=== PATIENT | female | born 1950 | race Caucasian/White ===

== ENCOUNTER 2023-08-25 16:47 | Emergency (ER) | payer OTHER, SELFPAY ==
[2023-08-25 16:51] VITALS: BP 151/78
[2023-08-25 17:13] LABS: % Basophils 0.4 % (0-2); % Eosinophils 1.3 % (0-6); % Immature Granulocytes 0.2 % (0-0.5); % Monocytes 6.3 % (1.7-9.3); % Neutrophils 50.8 % (42.2-75.2); Absolute Eosinophils 0.1 10^3/uL (0-0.7); Absolute Lymphocytes 2.3 10^3/uL (1.2-3.4); Absolute Monocytes 0.4 10^3/uL (0.1-0.6); Absolute Neutrophils 2.8 10^3/uL (1.4-6.5); Hematocrit 40.6 % (37.0-47.0); Hemoglobin 13.4 g/dL (12.0-16.0); Mean Corpuscular Hgb 29.1 pg (27.0-31.0); Mean Corpuscular Volume 88.1 fL (81.0-99.0); Mean Platelet Volume 10.1 fL (7.4-10.4); Nucleated Red Blood Cells % 0 %; Platelet Count 199 10^3/uL (130-400); Red Blood Cell Count 4.61 10^6/uL (4.20-5.40); White Blood Cell Count 5.5 10^3/uL (4.8-10.8)
[2023-08-25 17:26] LABS: ALT (SGPT) 16 U/L (0-35); AST (SGOT) 25 U/L (14-36); Albumin 4.1 g/dl (3.5-5.0); Alkaline Phosphatase 59 U/L (38-126); Blood Urea Nitrogen 23 mg/dl (7-17); Carbon Dioxide 26 mmol/L (22-30); Chloride 106 mmol/L (98-107); Glucose 103 mg/dl (70-99); Potassium 3.6 mmol/L (3.5-5.1); Sodium 137 mmol/L (135-145); Total Bilirubin 0.5 mg/dl (0.2-1.3); Total Protein 6.6 g/dl (6.3-8.2); eGFR > 60.00
[2023-08-25 17:37] LABS: Troponin I < 0.012 ng/ml
--- NOTE | 2023-08-25 18:12 | ED.GENMED ---
History of Present Illness
General
Chief Complaint: Fainting Sensation
Source: patient
Time Seen by Provider: 08/25/23 17:50
Travel History
Have you had any contact with someone who has COVID-19?: No
Do you have any symptoms of coronavirus? Fever > 100 degrees, chills, cough, shortness of breath, sore throat, loss of taste or smell, muscle aches, or headache?: No
History of Present Illness
History of Present Illness:
73-year-old female with no significant past medical history presents to the emergency department at the request of her primary care physician after around 345 this afternoon patient was sitting at home talking with a family member when she felt a
sudden paresthesia sensation to her bilateral upper extremities coinciding with a sudden onset substernal chest pain that lasted for around 1 minute that radiated towards her back but otherwise states that after the minute has been asymptomatic
since. She contacted her primary care physician to see if she can get an appointment to be evaluated but was recommended to come to the ER for further evaluation. Patient maintains that she is asymptomatic and has no other concerns at this time.
She denies any history of similar. Family history was significant for an uncle on her mother side having a stroke but otherwise no known cardiac disease. Social history was noncontributory.
Past History
Past History
ED Past Medical History: None
ED Past Surgical History: None
Social History
Tobacco: Non-smoker
Alcohol: None
Drug: None
Personal: Single
Living: with family
Review of Systems
Review of Systems
All Other Systems: ROS reviewed and negative except as documented in HPI and ROS
Phy Exam
Physical Exam
Physical Exam:
GENERAL: Alert , in no apparent distress
EYE: clear conjunctiva b/l
HEAD: NCAT
ENT: o/p clr, mmm.
CARDIAC: Regular rate and rhythm, no murmur.
LUNGS: Clear breath sounds bilaterally, no acute respiratory distress, no wheezes/rales/rhonchi
ABDOMEN: Soft, without focal tenderness, no r/g, no cvat, negative Smith sign, no tenderness at McBurney's point
NEUROLOGICAL: Alert and oriented
SKIN: Warm and dry, skin intact.
MUSCULOSKELETAL: No edema, well perfused. Easily palpable radial pulses bilateral
PSYCH: Normal and appropriate interaction.
Scores
Heart Failure Risk
Heart Failure Risk Score: Not Applicable
Heart Score for Chest Pain Patients
STEMI patient?: No
History: Slightly or Non-Suspicious
ECG: Normal
Age: >/= 65 years
Risk Factors: No Risk Factors
Troponin: </= Normal Limit
Heart Score for Chest Pain Patients: 2
Heart Score Risk: 2.5% MACE over next 6 weeks
Withdrawal Assessment of Alcohol
Withdrawal Assessment Completed?: Not applicable
Course
Orders/Labs/Results
Orders:
Orders
08/25/23 16:57
Electrocardiogram (*1) Urgent
Reason for Study: Other
Other Reason for Exam: parasthesia
08/25/23 16:58
EKG- Treatment ONCE
08/25/23 17:05
Complete Blood Count/With Diff Urgent
Comprehensive Metabolic Panel Urgent
Troponin I Urgent
08/25/23 17:59
CT Chest/abd/pelvis Angio W/wo Urgent
Comment:
Reason For Exam: sudden chest pain,radiating to back,UE paresthesia
08/25/23 18:27
PTT Urgent
Prothrombin Time Urgent
Abnormal Lab Results
08/25/23
17:05
BUN 23 H mg/dl
(7-17)
Glucose 103 H mg/dl
(70-99)
08/25/23 17:05
08/25/23 17:05
Vital Signs
Initial and Last Documented VS:
Initial Vital Signs
Temp Pulse Resp BP Pulse Ox
97.9 F 64 20 151/78 99
08/25/23 16:51 08/25/23 16:51 08/25/23 16:51 08/25/23 16:51 08/25/23 16:51
Last Documented Vital Signs
Temp Pulse Resp BP Pulse Ox
97.9 F 61 20 126/69 98
08/25/23 16:51 08/25/23 20:40 08/25/23 20:40 08/25/23 20:40 08/25/23 20:40
MDM/Problems Addressed
Differential Diagnosis Includes:
Dissection, ruptured AAA, less likely ACS, cholecystitis, electrolyte disturbance, valvular disorder, cardiac dysrhythmia
MDM/Problems Addressed:
73-year-old female presenting emergency department for evaluation of a sudden onset bilateral upper extremity paresthesia associated with substernal chest pain radiating towards her back. Symptoms are presently fully resolved and have been since
around 4:00. Patient has minimal risk factors to no risk factors for cardiac disease however given the reported symptoms I am going to order a CT angio of the chest with dissection protocol. Lab work had already been initiated from triage and is
largely unremarkable. Reassessment following.
*Radiology
Radiology exam reviewed: radiology read reviewed
*Pulse Oximetry
Patient hypoxic: no
*EKG
Interpreted by ED Provider?: Yes
Comparison EKG: no comparison EKG present
Heart Rate: 66
Rate: normal
Rhythm: sinus
Bear: normal axis
Ischemia: no ischemia
*Director Of Music Therapy Interpretation
Rate: normal
Rhythm: sinus
*Critical Care Note
Total Time (30-74mins, 75-104mins- exclusive of procedures): Not Applicable
Patient Management
Escalation/DeEscalation of care consider admission/obs:
Patient CT dissection protocol shows no acute pathology of the chest abdomen or pelvis. At this time there is no clear etiology for patient's symptoms however she remains symptom-free and otherwise wishes to be discharged home. I encouraged the
patient to contact her primary care physician tomorrow for close follow-up visit as well as discussed return precautions to all of which patient is agreeable with. Patient is otherwise stable for discharge home.
ED Attending Note
-
Portions of this chart may have been created with voice recognition software.� Occasional wrong word or��sound alike� substitutions may have occurred due to the inherent limitations of voice recognition software.
Discharge Plan
Departure
Patient Disposition: Home (Routine Discharge)
Date of Disposition: 08/25/23
Time of Disposition: 21:01
Patient with high blood pressure during this ER visit?: Yes
Discharge Problem:
Chest pain
Instructions: Chest Pain (DC)
Prescriptions:
No Action
Biotene
1 tab PO DAILY
magnesium glycinate
1 pill PO DAILY
Referrals:
Kalina Anders MD [Family Provider] -
Interventions
Interventions:
*Risk Screen - Suicide Last Done: 08/25/23 16:51
*General Assessment Last Done: 08/25/23 20:40
*Neglect/Abuse Screening Last Done: 08/25/23 20:40
ED- Fall Risk Assessment Last Done: 08/25/23 20:40
*ED COVID-19 Vaccine History Last Done: 08/25/23 20:40
ED- Cardiac Assessment Last Done: 08/25/23 20:40
ED- Neurological Assessment Last Done: 08/25/23 20:40
[2023-08-25 18:46] LABS: INR 1.03; PT 13.3 Sec (11.4-14.6)
[2023-08-25 18:47] LABS: APTT 26.2 Sec (23.4-35.0)
[2023-08-25 20:40] VITALS: BP 126/69
[2023-08-25 20:52] VITALS: BMI 28.8
[2023-08-25 22:05] VITALS: BP 133/68
== END 2023-08-25 22:46 | disposition home or self-care (01) ==
LOC: EMR 16:47
PROVIDERS: Physician Assistant Medical; EMERGENCY PHYSICIAN Student in an Organized Health Care Education/Training Program; FAMILY PHYSICIAN Internal Medicine
DX: R55 Syncope and collapse (principal)
CPT/HCPCS: 99284; 71275; 74174; 80053; 84484; 85025; 85610; 85730; 93005; Q9967

== ENCOUNTER → 2023-10-06 08:10 | Outpatient (REF) | payer OTHER, SELFPAY | LOC: WDC 08:10 | PROVIDERS: ATTENDING PHYSICIAN Nurse Practitioner | DX: Z12.31 Encounter for screening mammogram for malignant neoplasm of breast (principal) | CPT/HCPCS: 77063; 77067 ==

== ENCOUNTER 2024-05-06 13:35 | Inpatient (IN) | payer OTHER, MEDICARE, SELFPAY ==
[2024-05-06 09:00] VITALS: BP 145/82
--- NOTE | 2024-05-06 09:31 | ED.GENMED ---
History of Present Illness
General
Chief Complaint: Fall
Source: patient
Exam Limitations: none
Time Seen by Provider: 05/06/24 09:07
Nursing documentation reviewed up to this point in time: agreed with
History of Present Illness
History of Present Illness:
Patient is a 74-year female who twisted her right ankle at home and fell. She denies hitting her head she is not on blood thinners. She only complains of swelling and discomfort to right ankle with weightbearing. No other injuries.
Past History
Past History
ED Past Medical History: None
ED Past Surgical History: None
Social History
Tobacco: Non-smoker
Alcohol: None
Drug: None
Personal: Single
Living: with family
Review of Systems
Review of Systems
Allergies reviewed?: Yes
All Other Systems: ROS reviewed and negative except as documented in HPI and ROS
Constitutional: Reports no symptoms
Musculoskeletal: Reports other (r ankle pain )
Skin: Reports no symptoms
Hematologic/Lymphatic: Reports no symptoms
Psychiatric: Reports no symptoms
Phy Exam
General Physical Exam
General Presentation: no apparent distress
General age: appears stated age
General Skin: warm and dry
General Habitus: normal
General Mental: alert
General Hydration: appears well hydrated
Neurological Exam
Neurological Exam: alert and oriented x3
Musculoskeletal Exam
Musculoskeletal Exam: other (rle with strong pulses + swelling /tenderness to right lateral ankle no prox tib/fib tenderness no abrasions/lacerations )
Skin Exam
Skin Exam: normal color and warm/dry
Psychiatric Exam
Psychiatric Exam: normal mood/affect
Course
Orders/Labs/Results
Orders:
Orders
05/06/24 09:02
Ankle, Right 3 view CR [CR Ankle - Right Min 3 Views *] Urgent
Comment: + swelling
Reason For Exam: tripped over map twisted right ankle
05/06/24 10:11
Splints/Slings/Crut- Treatment ONCE
Location: Right
Type of Splint: Short Leg
Comment: below right knee
05/06/24 10:12
Electrocardiogram (*1) Stat
Reason for Study: Abdominal Pain
EKG- Treatment ONCE
IV Insert/Care/Rem.- Treatment PRN
05/06/24 10:34
Basic Metabolic Panel Urgent
Complete Blood Count/With Diff Urgent
Abnormal Lab Results
05/06/24
10:34
MPV 11.2 H fL
(7.4-10.4)
BUN 22 H mg/dl
(7-17)
05/06/24 10:34
05/06/24 10:34
Vital Signs
Initial and Last Documented VS:
Initial Vital Signs
Temp Pulse Resp BP Pulse Ox
98.0 F 76 16 145/82 98
05/06/24 09:00 05/06/24 09:00 05/06/24 09:00 05/06/24 09:00 05/06/24 09:00
Last Documented Vital Signs
Temp Pulse Resp BP Pulse Ox
98.0 F 76 16 145/82 98
05/06/24 09:00 05/06/24 09:00 05/06/24 09:00 05/06/24 09:00 05/06/24 09:00
Procedures
Splint Check
Splint checked by provider?: Yes
Circulation/Movement/Sensation post splint application: brisk cap refill and full sensation
MDM/Problems Addressed
Differential Diagnosis Includes:
Not limited to fracture, dislocation, sprain
MDM/Problems Addressed:
pt with right distal fibular fracture + displaced + strong pulses neurovascular intact no head injury.
Case reviewed with orthopedics on-call who was able to visualize images on [facility] text. This will require surgery. Discussed with patient. After discussion with orthopedics and patient patient will be admitted for surgery basic labs ordered.
Patient placed in a posterior splint.
*Critical Care Note
Total Time (30-74mins, 75-104mins- exclusive of procedures): Not Applicable
Patient Management
Discussion with other providers: [employer] (DR Schwab (ortho ) )
ED Attending Note
-
Portions of this chart may have been created with voice recognition software.� Occasional wrong word or��sound alike� substitutions may have occurred due to the inherent limitations of voice recognition software.
Discharge Plan
Departure
Patient Disposition: Admit
Date of Disposition: 05/06/24
Time of Disposition: 11:56
Admit to: Med/Surg
Admit to doctor: hospitalist
Presentation/result/management discussed w/ accepting MD/DO: Hospitalist
Patient with high blood pressure during this ER visit?: Yes
Condition: Fair
Covid-19: Not Applicable
Discharge Problem:
Fibula fracture
Prescriptions:
No Action
No Current Medications
0
Referrals:
Chioma Allan CRNP [Family Provider] -
Interventions
Interventions:
*Risk Screen - Suicide Last Done: 05/06/24 09:00
*General Assessment Last Done: 05/06/24 09:23
*Neglect/Abuse Screening Last Done: 05/06/24 09:00
*ED COVID-19 Vaccine History Last Done: 05/06/24 09:23
ED-Musculoskeletal Assessment Last Done: 05/06/24 09:23
ED- Neurological Assessment Last Done: 05/06/24 09:23
ED-Skin Assessment Last Done: 05/06/24 09:23
Discharge Date and Time
Print Language: SUDANESE
[2024-05-06 10:47] VITALS: BMI 27.8
[2024-05-06 10:47] LABS: % Basophils 0.4 % (0-2); % Eosinophils 0.7 % (0-6); % Immature Granulocytes 0.2 % (0-0.5); % Monocytes 4.9 % (1.7-9.3); % Neutrophils 70.8 % (42.2-75.2); Absolute Lymphocytes 1.3 10^3/uL (1.2-3.4); Absolute Monocytes 0.3 10^3/uL (0.1-0.6); Absolute Neutrophils 3.9 10^3/uL (1.4-6.5); Hematocrit 39.9 % (37.0-47.0); Hemoglobin 13.4 g/dL (12.0-16.0); Mean Corp Hgb Conc. 33.6 g/dL (33.0-37.0); Mean Corpuscular Hgb 29.3 pg (27.0-31.0); Mean Corpuscular Volume 87.1 fL (81.0-99.0); Mean Platelet Volume 11.2 fL (7.4-10.4); Nucleated Red Blood Cells % 0 %; Platelet Count 259 10^3/uL (130-400); Red Blood Cell Count 4.58 10^6/uL (4.20-5.40); Red Cell Dist. Width 14.1 % (11.5-14.5); White Blood Cell Count 5.5 10^3/uL (4.8-10.8)
[2024-05-06 11:09] LABS: Blood Urea Nitrogen 22 mg/dl (7-17); Calcium 9.7 mg/dl (8.4-10.2); Carbon Dioxide 25 mmol/L (22-30); Chloride 107 mmol/L (98-107); Estimated Creatinine Clearance 60 ml/min; Glucose 73 mg/dl (70-99); Sodium 141 mmol/L (135-145); eGFR > 60.00
--- NOTE | 2024-05-06 13:08 | HPS.HSE ---
Family Physician
-
Family Physician: ELIZABETH Barrett
Chief Complaint
-
Fall, ankle pain
History of Present Illness
74-year-old female with GERD, hyperlipidemia, allergic rhinitis that presented to the ED today after a fall at home. States that she fell when walking into her house on her floor mat, and fell with her right ankle onto her door jam. Denied any
head strike, loss of consciousness. She is not on any blood thinners. Complained of swelling and discomfort to the right ankle with weightbearing following the incident. Denies other known injuries. Not currently on any standing medications. No
previous surgical history. AFVSS on arrival. Labs unremarkable. X-ray of the ankle showed acute oblique fracture of the right distal fibula located at the level of the distal tibiofibular syndesmosis with 5.8 mm lateral displacement of the distal
fracture fragment. X-ray also showed likely tear of the deltoid ligament, small calcaneal enthesophytes. Evaluated by Dr. Schwab from orthopedics who recommended surgical fixation on this hospital stay.
Medical History
Past Medical History
Past Medical History: Reports GERD, HTN and Hypercholesterolemia
Past Surgical History: Reports None
Social History
Tobacco: Non-smoker
Alcohol: None
Drug: None
Personal: Single
Living: With Family
Family History
Family History: Not pertinent
Allergies / Home Medications
Allergies reflects when Allergies were last updated in [facility].
Home Medications with original date entered in [facility]
Allergy/Medication List:
Allergies
Allergy/AdvReac Type Severity Reaction Status Date / Time
No Known Allergies Allergy Verified 05/06/24 09:02
Home Medications
No Meds [No Current Medications] 05/06/24
Review of Systems
-
History Source: Patient
A 12 point ROS was completed and negative except as noted: Yes
Constitutional: Reports No Symptoms
EENT: Reports No Symptoms
Respiratory: Reports No Symptoms
Cardiac: Reports No Symptoms
Abdomen/GI: Reports No Symptoms
: Reports No Symptoms
Musculoskeletal: Reports See HPI, Joint Pain and Joint Swelling
Skin: Reports No Symptoms
Neurological: Reports No Symptoms
Endocrine: Reports No Symptoms
Hematologic/Lymphatic: Reports No Symptoms
Psych: Reports No Symptoms
Physical Exam
Vital Signs
Vital Signs
Temp Pulse Resp BP Pulse Ox
98.0 F 76 16 145/82 98
05/06/24 09:00 05/06/24 09:00 05/06/24 09:00 05/06/24 09:00 05/06/24 09:00
Physical Exam
General: Well Nourished, No Apparent Distress and Comfortable
HEENT: NormoCephalic, Anicteric and Moist mucous membranes
Respiratory: Clear and Non Labored Respirations; No Wheezes, Rales or Rhonchi
Cardiac: S1/S2 and Regular Rhythm; No Murmur, Rub or Gallop
GI: Soft, Non Tender, Non Distended and Normal Bowel Sounds
Musculoskeletal: No Clubbing, No Cyanosis and Other ( no gross deformity noted; right ankle bandage)
Skin: Warm and Dry; No Rash
Neuro: AO x 3 and Nonfocal/grossly intact
Psych: Calm
Laboratory Results
-
05/06/24 10:34
05/06/24 10:34
Laboratory Results
Total Bilirubin Cancelled 05/06/24 10:34
AST Cancelled 05/06/24 10:34
ALT Cancelled 05/06/24 10:34
Alkaline Phosphatase Cancelled 05/06/24 10:34
Data Reviewed
-
Diagnostic Radiology: Report Reviewed by me, Discussed with Physician and Discussed with Patient
Lab Data: Labs Reviewed by me and Discussed with Patient
Impression/Plan
-
#Displaced acute oblique fracture of the right fibula
-Secondary to mechanical fall with twisting motion at the level of the ankle
-X-ray here showed acute fracture, orthopedics recommending inpatient procedure
-Neurovascularly intact distal to the injury, no compromise to dermal layers
-Will keep patient nonweightbearing pending orthopedics evaluation
-N.p.o. after midnight for potential surgical fixation tomorrow
-Analgesia: Tylenol/oxycodone 5/oxycodone 10
#GERD
-Not on any home medications
-No history of BE or erosive disease
-Will order famotidine as needed
#Dyslipidemia
-Per history, no medications, no ASCVD
#Hypertension
-Not on any home medications, no history of systemic disease
-Will monitor blood pressure here and consider as needed medications for elevation
DVT prophylaxis: Heparin subcutaneous
Diet: Regular, NPO @ MN
CODE STATUS: Full code
Disposition: Admit to [facility]
--- NOTE | 2024-05-06 14:50 | PTCARENOTE ---
Patient arrived via stretcher from ED with (R) below knee splint and leigh ann wrap; VSS; (R) ankle pain level 3; admission history obtained at bedside.
[2024-05-06 15:08] VITALS: BP 159/83
[2024-05-06 15:09] VITALS: BMI 28.3
[2024-05-06] MEDS: TYLENOL 650 MG PO ×2 (15:36→22:54)
[2024-05-06] MEDS: HEPARIN 5000 UNITS SC (15:37)
--- NOTE | 2024-05-06 17:13 | CON.ORTHO ---
Consultation - Orthopedics
History
HPI: 74-year-old healthy female presented emergency department today status post mechanical fall with complaints of right ankle pain. She was subsequently diagnosed with an unstable bimalleolar equivalent ankle fracture and was admitted to the
hospitalist service. Orthopedics was consulted for further evaluation and treatment. Patient reports that she tripped on a rug at home and subsequently fell and twisted her ankle. She felt immediate pain and inability to bear weight. She reports
that she lives at home with her daughter. She reports that she still works full-time for [employer].
Allergies / Home Medications
Past medical history: GERD, hypertension, hypercholesterolemia
Past surgical history: None reported
Social history: Non-smoker, lives with daughter at home
Family history: Not pertinent
Allergy/AdvReac Type Severity Reaction Status Date / Time
No Known Allergies Allergy Verified 05/06/24 09:02
�Medication �Instructions �Recorded
No Meds [No Current Medications] 05/06/24
Vital Signs / Lab Results
Temp Pulse Resp BP Pulse Ox
97.8 F 67 16 159/83 98
05/06/24 15:08 05/06/24 15:08 05/06/24 15:08 05/06/24 15:08 05/06/24 15:08
05/06/24 10:34
05/06/24 10:34
10 point review systems reviewed and negative unless otherwise stated
General: Pleasant, no acute distress
Musculoskeletal right lower extremity
Splint in place
Splint was windowed and skin overlying lateral ankle was visualized, able to wrinkle skin
Positive EHL, FHL, sensation intact to light touch in exposed skin distally
No palpable ipsilateral knee effusion
Post cap refill distally
No other areas of bony tenderness palpation or crepitation of long bones or joints or tertiary examination
Diagnostic studies
X-rays left ankle taken today independently viewed by myself show oblique lateral malleolus fracture level of syndesmosis with significant shortening. There is evidence of medial joint space widening
Assessment / Plan
74-year-old female healthy lateral malleolus/bimalleolar equivalent ankle fracture right. I do long detailed discussion the patient regarding diagnosis and treatment options. We discussed both surgical and nonsurgical options. After discussion we
mutually agreed to proceed with surgical intervention in the form of open reduction internal fixation. We discussed risks benefits and alternatives of surgery. We discussed the usual expected perioperative postoperative course. After discussion
verbal consent was obtained. Will plan to obtain written informed consent prior to OR tomorrow
Nonweightbearing right lower extremity
DVT prophylaxis: Hold in preparation for OR
Pain control
Medical management per primary team
Maintain elevation and ice to right lower extremity to minimize swelling in preparation for OR
Plan: 2 OR tomorrow for open reduction internal fixation right ankle fracture
[2024-05-06 23:12] VITALS: BP 158/78
[2024-05-07] VITALS (10 sets, daily range): BP systolic 119–162; BP diastolic 59–87; PULSE 86–92; O2SAT 98
[2024-05-07] MEDS: HEPARIN 5000 UNITS SC (00:03)
[2024-05-07 05:28] LABS: % Basophils 0.3 % (0-2); % Eosinophils 1.5 % (0-6); % Immature Granulocytes 0.2 % (0-0.5); % Lymphocytes 31.3 % (20.5-51.1); % Monocytes 6.9 % (1.7-9.3); % Neutrophils 59.8 % (42.2-75.2); Absolute Eosinophils 0.1 10^3/uL (0-0.7); Absolute Lymphocytes 1.9 10^3/uL (1.2-3.4); Absolute Monocytes 0.4 10^3/uL (0.1-0.6); Absolute Neutrophils 3.6 10^3/uL (1.4-6.5); Hematocrit 38.4 % (37.0-47.0); Hemoglobin 12.9 g/dL (12.0-16.0); Mean Corp Hgb Conc. 33.6 g/dL (33.0-37.0); Mean Corpuscular Hgb 29.2 pg (27.0-31.0); Mean Corpuscular Volume 86.9 fL (81.0-99.0); Mean Platelet Volume 10.4 fL (7.4-10.4); Nucleated Red Blood Cells % 0 %; Platelet Count 189 10^3/uL (130-400); Red Blood Cell Count 4.42 10^6/uL (4.20-5.40); Red Cell Dist. Width 14.1 % (11.5-14.5)
[2024-05-07 05:50] LABS: Blood Urea Nitrogen 18 mg/dl (7-17); Calcium 9.4 mg/dl (8.4-10.2); Carbon Dioxide 23 mmol/L (22-30); Chloride 106 mmol/L (98-107); Estimated Creatinine Clearance 61 ml/min; Glucose 111 mg/dl (70-99); Sodium 140 mmol/L (135-145); eGFR > 60.00
[2024-05-07] MEDS: HEPARIN SC (07:45)
--- NOTE | 2024-05-07 08:00 | PTCARENOTE ---
Telephone report given to LOOP MACHINE OPERATORPRABHJOT Quevedo; 2nd CHG wipe completed; patient delivered in bed with chart to OR waiting area bed 1.
--- NOTE | 2024-05-07 08:00 | OR.RPT ---
Operative Report
Operative Report
Anesthesia Type:
General
Operative Indications:
Unstable right bimalleolar equivalent ankle fracture
Operative Findings :
Mostly oblique lateral malleolus fracture
Complications:
None
Implants:
[place]ake anatomic lateral malleolus plate
Procedure and Technique:
Open reduction internal fixation right lateral malleolus fracture
INDICATIONS FOR PROCEDURE:
Patient is an active 74-year-old female sustained mechanical fall at home with immediate complaints of right ankle pain and inability to bear weight. She presented to the emergency department where an unstable bimalleolar equivalent ankle fracture
was identified. A long discussion the patient regarding diagnosis and treatment options. Discussed both surgical nonsurgical options. After discussion we mutually elected proceed with surgical intervention in the form of open reduction internal
fixation lateral malleolus fracture with intraoperative stress testing. We discussed risks benefits and alternatives to procedure. We discussed the usual expected perioperative postoperative course. After discussion written informed consent was
obtained.
OPERATIVE PROCEDURE:
Patient was seen identified the preoperative holding area. Operative extremity was marked. All questions were addressed and answered. She was taken the operating room which was placed supine on operating room table. General anesthesia was
administered. Operative extremities prepped and draped in normal sterile fashion. Nonsterile tourniquet was applied. Timeout was performed again identifying the correct operative extremity. Preoperative antibiotics were addressed. Direct
lateral approach to the ankle was taken. Sharp dissection was carried through skin subcutaneous tissues. Deep dissection was performed in a blunt manner. All neurovascular structures were protected. Oblique fracture was identified. Attempt was
made to perform a lag by technique lag fixation of the fracture from an A to P direction. There was not appropriate fixation and likely fracture is much more oblique in nature than spiral. I decision was made to place a plate and then a lag
through the plate in a lateral to medial direction. A lateral anatomic locking plate was then placed with bicortical fixation proximally and unicortical locking fixation distally. A lag screw was then placed through the plate and a lateral to
medial direction through the oblique fracture site. This did provide additional fixation. The ankle was then stressed with external rotation stress views. There was no significant medial joint space widening. There is appropriate tib-fib
overlap. The fibula was out to length. Satisfied with extent surgery, tourniquet was deflated and hemostasis was achieved with electrocautery. Wound was copiously irrigated with normal saline solution. Wound was closed in layered fashion
utilizing 0 Vicryl for deep fascial layer, 2-0 Vicryl for subcutaneous layer and nylon sutures for skin. Sterile dressing was applied consisting of Xeroform, 4 x 4 gauze, ABD Webril. An AO splint was placed by myself with the ankle in a neutral
position. Anesthesia was versed and patient was taken to PACU in stable condition. Postoperative plans include nonweightbearing to the operative extremity. Recommend aspirin for DVT prophylaxis. Follow-up outpatient with myself in 2 weeks.
Disposition:
PACU stable condition
[2024-05-07] MEDS: DILAUDID 0.25 MG IV (10:28)
--- NOTE | 2024-05-07 11:03 | PTCARENOTE ---
Telephone report received from GREASE [employer] TALLOW PUMPER Pietro, patient arrived in bed, VSS, Splint/leigh ann wrap intact, pain free; patient's daughter and son in room.
[2024-05-07] MEDS: NSS 1000 IV ×2 (12:02→22:12)
--- NOTE | 2024-05-07 12:02 | W.PN.HOSP.TC ---
Today's Communication/Plan
-
OR today
Plan diet after OR
Begin PT at orthopedics discretion
Assessment / Plan
Assessment / Plan
#Displaced acute oblique fracture of the right fibula
-Secondary to mechanical fall with twisting motion at the level of the ankle
-X-ray here showed acute fracture, orthopedics recommending inpatient procedure
-Will keep patient nonweightbearing pending orthopedics evaluation
-Analgesia: Tylenol/oxycodone 5/oxycodone 10
-OR today, will follow-up orthopedics ecs after surgery
-Begin working with PT at Ortho's discretion
#GERD
-Not on any home medications
-No history of BE or erosive disease
-Will order famotidine as needed
#Dyslipidemia
-Per history, no medications, no ASCVD
#Hypertension
-Not on any home medications, no history of systemic disease
-Will monitor blood pressure here and consider as needed medications for elevation
DVT prophylaxis: Heparin subcutaneous
Diet: Plan for diet after OR
CODE STATUS: Full code
Anticipated Discharge: 24 - 48 hours
Subjective/Interval History
-
Date of Service: May 07, 2024
Seen and examined in the PACU prior to surgery. No acute events overnight. AFVSS as of this morning.
She denies any acute complaints and states she feels well, ready for the procedure.
Objective Data
-
Labs:
Laboratory Results
05/07/24
04:31
WBC 6.0
Hgb 12.9
Hct 38.4
Plt Count 189 D
Sodium 140
Potassium 4.0
Chloride 106
Carbon Dioxide 23
BUN 18 H
Creatinine 0.8
Glucose 111 H
Calcium 9.4
Vital Signs:
Vital Signs
Temp Pulse Resp BP Pulse Ox
97.7 F 64 16 138/71 94
05/07/24 11:15 05/07/24 11:15 05/07/24 11:15 05/07/24 11:15 05/07/24 11:15
I&O
05/06/24 05/07/24 05/08/24
06:59 06:59 06:59
Intake Total 480 / 480
Balance 480 / 480
Review of Systems
-
History Source: Patient
All other systems: Reviewed and negative
Physical Exam
-
General: Well Nourished, No Apparent Distress and Comfortable
HEENT: Normocephalic, Atraumatic and Moist Mucous Membranes
Respiratory: Clear to Auscultation and Non Labored Respirations
Cardiac: Regular Rhythm and S1/S2; Negative Murmur, Rub or Gallop
GI: Soft, Nontender and Nondistended
Musculoskeletal: No Clubbing, No Cyanosis, No Edema and Other
Skin: Warm, Dry and Normal Turgor; Negative Rash
Neuro: AO x 3, Nonfocal/Grossly Intact and Central Nerve's Intact
Psych: Calm
Data Reviewed
-
Labs: Labs Reviewed by me and Discussed with Patient
--- NOTE | 2024-05-07 15:44 | CM ---
Addendum entered by Brittany Nguyen 05/08/24 16:34:
referral to [facility] and accepted.
Addendum entered by Brittany Nguyen 05/07/24 15:49:
CM called to acute care to inquire re transportation in am. they are able to transport. patient updated that she may have copay or deductable and to call insurance #. CM will assist with discharge planning tomorrow.
Original Note:
Patient seen at bedside with sister present. Patient lives with family in a 2 story home 5 steps to enter and 14 to second floor. Patient non weight bearing for 2 wks. Patient daughter went to [place] to review options for purchasing wheelchair and
family is intrested in possible ambulance transportation to home due to Non weight bearing and steps. Patient is considering need for VN and her PCP is Dr. Guzman and she uses the [facility] in [place]. Patient has [facility] part A. Patient plan is to go
home with family supports. CM will continue to follow for discharge planning needs.
Plan; home with VN vs home with no needs.
[2024-05-07] MEDS: ANCEF 5 IV (16:39)
[2024-05-07] MEDS: TYLENOL 650 MG PO (22:19)
[2024-05-08] MEDS: ANCEF 5 IV (00:46)
[2024-05-08 03:30] VITALS: BP 142/73
[2024-05-08 06:44] LABS: % Basophils 0.1 % (0-2); % Eosinophils 0.2 % (0-6); % Immature Granulocytes 0.2 % (0-0.5); % Lymphocytes 22.3 % (20.5-51.1); % Monocytes 5.8 % (1.7-9.3); % Neutrophils 71.4 % (42.2-75.2); Absolute Lymphocytes 2.1 10^3/uL (1.2-3.4); Absolute Monocytes 0.6 10^3/uL (0.1-0.6); Absolute Neutrophils 6.8 10^3/uL (1.4-6.5); Hematocrit 35.6 % (37.0-47.0); Hemoglobin 11.6 g/dL (12.0-16.0); Mean Corp Hgb Conc. 32.6 g/dL (33.0-37.0); Mean Corpuscular Hgb 27.9 pg (27.0-31.0); Mean Corpuscular Volume 85.6 fL (81.0-99.0); Mean Platelet Volume 10.8 fL (7.4-10.4); Nucleated Red Blood Cells % 0 %; Platelet Count 196 10^3/uL (130-400); Red Blood Cell Count 4.16 10^6/uL (4.20-5.40); Red Cell Dist. Width 14.3 % (11.5-14.5); White Blood Cell Count 9.5 10^3/uL (4.8-10.8)
[2024-05-08 07:01] VITALS: BP 140/72
[2024-05-08 07:05] LABS: Blood Urea Nitrogen 18 mg/dl (7-17); Calcium 8.7 mg/dl (8.4-10.2); Carbon Dioxide 23 mmol/L (22-30); Chloride 108 mmol/L (98-107); Estimated Creatinine Clearance 70 ml/min; Glucose 83 mg/dl (70-99); Potassium 4.3 mmol/L (3.5-5.1); Sodium 142 mmol/L (135-145); eGFR > 60.00
--- NOTE | 2024-05-08 09:48 | W.PN.ORTHO ---
Today's Communication / Plan
-
74-year-old female postop day 1 status post open reduction term fixation right lateral malleolus fracture doing well.
Nonweightbearing right lower extremity in splint
PT OT
Pain control
DVT prophylaxis: Recommend 81 mg aspirin twice daily for 30 days
Would like to have patient follow-up outpatient with myself in 2 to 3 weeks for repeat evaluation with planned removal of sutures.
Please reach out any questions or concerns. No further orthopedic intervention planned during this hospitalization.
Assessment
.
Dressing:
Clean, dry and intact.
Subjective
.
.:
Patient resting comfortably in chair this morning. Daughter at bedside. She reports that she was able to ambulate quite well yesterday with a walker.
Vital Signs and Labs
.
Vital Signs and Labs:
Lab Results
05/08/24 04:24
05/08/24 04:24
Temp Pulse Resp BP Pulse Ox
97.8 F 74 16 140/72 98
05/08/24 07:01 05/08/24 07:01 05/08/24 07:01 05/08/24 07:01 05/08/24 08:00
Physical Exam
-
Musculoskeletal right lower extremity
Splint in place, exposed toes warm sensate mobile
[2024-05-08] MEDS: NSS IV (10:36)
--- NOTE | 2024-05-08 10:54 | W.PN.HOSP.TC ---
Today's Communication/Plan
-
Aspirin for DVT prophylaxis
NWB to RLE in splint
Discharge
Assessment / Plan
Assessment / Plan
#Displaced acute oblique fracture of the right fibula
-Status post OR for right lateral malleolus plate
-Continue with aspirin 81 mg twice daily for 30 days as DVT prophylaxis
-Continue NWB right lower extremity in splint
-Continue with Tylenol as needed for analgesia
-Follow-up outpatient with orthopedics outpatient
#GERD
-Not on any home medications
-No history of BE or erosive disease
-Will order famotidine as needed
#Dyslipidemia
-Per history, no medications, no ASCVD
#Hypertension
-Not on any home medications, no history of systemic disease
-Will monitor blood pressure here and consider as needed medications for elevation
DVT prophylaxis: Heparin subcutaneous
Diet: Plan for diet after OR
CODE STATUS: Full code
Anticipated Discharge: Today
Subjective/Interval History
-
Date of Service: May 08, 2024
Seen and examined at the bedside. No acute events reported overnight. AFVSS this morning.
POD #1 from right ankle lateral malleolus plate
Denies any acute complaints including pain.
Objective Data
-
Labs:
Laboratory Results
05/08/24
04:24
WBC 9.5
Hgb 11.6 L
Hct 35.6 L
Plt Count 196
Sodium 142
Potassium 4.3
Chloride 108 H
Carbon Dioxide 23
BUN 18 H
Creatinine 0.7
Glucose 83
Calcium 8.7
Vital Signs:
Vital Signs
Temp Pulse Resp BP Pulse Ox
97.8 F 74 16 140/72 98
05/08/24 07:01 05/08/24 07:01 05/08/24 07:01 05/08/24 07:01 05/08/24 08:00
I&O
05/07/24 05/08/24 05/09/24
06:59 06:59 06:59
Intake Total 480 / 480 2626 / 2626 340 / 340
Balance 480 / 480 2626 / 2626 340 / 340
Review of Systems
-
History Source: Patient
All other systems: Reviewed and negative
Physical Exam
-
General: Well Nourished, No Apparent Distress and Comfortable
HEENT: Normocephalic, Atraumatic and Moist Mucous Membranes
Respiratory: Clear to Auscultation and Non Labored Respirations
Cardiac: Regular Rhythm and S1/S2
GI: Soft, Nontender, Nondistended and Normal Bowel Sounds
Musculoskeletal: No Clubbing, No Cyanosis, No Edema and Other (RLE bandaged at ankle)
Skin: Warm and Dry; Negative Rash
Neuro: AO x 3, Nonfocal/Grossly Intact and Central Nerve's Intact
Psych: Calm
[2024-05-08 11:01] VITALS: BP 143/72; PULSE 75; O2SAT 97
--- NOTE | 2024-05-08 11:54 | W.DCSUMMARY ---
Discharge Summary
Discharge Data
Date of Admission: 05/06/24
Date of Discharge: 05/08/24
-
Pending Results: No
Hospital Course
74-year-old female with no chronic medical issues currently on no standing medications that presented after a mechanical fall at home. Walked into her house and slipped on the rug, fell with her right ankle into the door jam. Significant pain
following the incident. Came to the ED, x-ray showing right fibular fracture. Was evaluated by orthopedics and right lateral malleoli are plate was performed on 05/07/2024. Patient treated with oral Tylenol as needed for pain. Started on aspirin
81 mg twice daily for DVT prophylaxis. Will continue DVT prophylaxis for 30 days. Will follow-up with orthopedics in office after discharge. Recommendations for nonweightbearing to right lower extremity with splint. Case management set up
visiting nurse and home PT prior to discharge
Discharge Plan
-
Patient Disposition: Home (Routine Discharge)
Discharge Diagnosis/Procedures: Right fibular fracture
Status post right lateral malleolus plate
Condition: Good
Diet: No restrictions
Activity: Other activity
Additional Activity: Nonweightbearing to right lower extremity in splint
Driving Restrictions: No driving for 24 hours
Bathing Restrictions: None
Blood Work: None
Others Tests: None
Other Services: PT
Activity Restrictions/Additional Instructions:
After discharge she will need to follow-up with orthopedist in the office, call to schedule an appointment.
You should follow-up with your family doctor within 7 days of discharge for routine posthospital visit
Referrals:
Ike Schwab MD [Active] - in two to three weeks
Chioma Allan CRNP [Family Provider] -
Additional Discharge Medication Instructions: Use OTC Tylenol as needed for pain
Take aspirin 81 mg twice daily for 30 days as prophylaxis to prevent blood clots in the leg following surgery
Prescriptions:
New
aspirin 81 mg Tablet,Chewable
81 mg PO BID 30 Days Qty: 60 0RF
Discharge Orders:
Discharge Patient (As Directed); Ordered 05/08/24
Ordered By: Chidi Alexander
Discharge Date and Time
Print Language: CYMRO
[2024-05-08 15:00] VITALS: BP 129/65
[2024-05-08] MEDS: LOW STRENGTH ASPIRIN 81 MG PO (16:30)
== END 2024-05-08 18:00 | disposition home or self-care (01) | DRG 494 ==
LOC: 2 SOUTH 13:35
PROVIDERS: Nurse Practitioner; ADMITTING PHYSICIAN Internal Medicine; EMERGENCY PHYSICIAN Emergency Medicine; FAMILY PHYSICIAN Nurse Practitioner; OTHER PHYSICIAN Orthopaedic Surgery
PROC: 0QSJ04Z Reposition Right Fibula with Internal Fixation Device, Open Approach (ICD-10-PCS; 2024-05-07)
DX: S82.61XA Displaced fracture of lateral malleolus of right fibula, initial encounter for closed fracture (principal); E78.00 Pure hypercholesterolemia, unspecified; I10 Essential (primary) hypertension; K21.9 Gastro-esophageal reflux disease without esophagitis; W01.0XXA Fall on same level from slipping, tripping and stumbling without subsequent striking against object, initial encounter; Y92.009 Unspecified place in unspecified non-institutional (private) residence as the place of occurrence of the external cause
CPT/HCPCS: 29515; 73610; 76000; 80048; 85025; 93005; 97116; 97162; 97166; 97530; 99285; C1713

== ENCOUNTER → 2024-10-14 11:23 | Outpatient (REF) | payer OTHER, SELFPAY | LOC: RAD 11:23 | PROVIDERS: ATTENDING PHYSICIAN Nurse Practitioner | DX: Z12.31 Encounter for screening mammogram for malignant neoplasm of breast (principal); M79.601 Pain in right arm | CPT/HCPCS: 73030; 73060 ==

== ENCOUNTER → 2024-10-19 09:23 | Outpatient (REF) | payer OTHER, SELFPAY | LOC: WDC 09:23 | PROVIDERS: ATTENDING PHYSICIAN Nurse Practitioner | DX: R92.8 Other abnormal and inconclusive findings on diagnostic imaging of breast (principal) | CPT/HCPCS: 76642 ==

== ENCOUNTER 2025-01-31 13:52 | Emergency (ER) | payer OTHER, SELFPAY ==
[2025-01-31 13:57] VITALS: BP 102/54
[2025-01-31 14:12] VITALS: BP 138/63
[2025-01-31 14:13] LABS: Hematocrit 39.6 % (37.0-47.0); Hemoglobin 13.2 g/dL (12.0-16.0); Mean Corp Hgb Conc. 33.3 g/dL (33.0-37.0); Mean Corpuscular Volume 85.9 fL (81.0-99.0); Nucleated Red Blood Cells % 0 %; Platelet Count 230 10^3/uL (130-400); Red Cell Dist. Width 14.0 % (11.5-14.5)
[2025-01-31 14:32] VITALS: BMI 31.1
[2025-01-31 14:48] LABS: Troponin I < 0.012 ng/ml
[2025-01-31 15:00] VITALS: BP 152/70
[2025-01-31 15:14] LABS: ALT (SGPT) 27 U/L (0-35); AST (SGOT) 50 U/L (14-36); Albumin 4.4 g/dl (3.5-5.0); Alkaline Phosphatase 79 U/L (38-126); Blood Urea Nitrogen 25 mg/dl (7-17); Calcium 9.5 mg/dl (8.4-10.2); Carbon Dioxide 19 mmol/L (22-30); Chloride 109 mmol/L (98-107); Estimated Creatinine Clearance 52 ml/min; Glucose 128 mg/dl (70-99); Potassium 3.7 mmol/L (3.5-5.1); Sodium 138 mmol/L (135-145); Total Protein 6.8 g/dl (6.3-8.2); eGFR > 60.00
--- NOTE | 2025-01-31 15:33 | ED.GENMED ---
History of Present Illness
<Tayler Rdz PA-C - Last Filed: 02/01/25 11:56>
General
Chief Complaint: Chest Pain
Source: patient
Exam Limitations: none
Time Seen by Provider: 01/31/25 15:33
Nursing documentation reviewed up to this point in time: agreed with
History of Present Illness
History of Present Illness:
Patient is a 74-year-old healthy female who presents to the emergency department for evaluation of acute onset chest pressure. Patient states she was registering for her DEXA scan outpatient at the hospital when she had acute onset pressure in her
mid chest which radiated into her upper back. She reports feeling mildly short of breath and diaphoretic at the time. Persisted for about 30 minutes but resolved by the time she was in the emergency department. She think symptoms started around 2
PM.
Patient denies any radiation of pain to her shoulders or jaw. No numbness/tingling in extremities or headache.
Patient denies any recent travel or recent surgeries. No personal or family history of blood clots or clotting disorders.
Patient did see 1 time a few years ago where she had a normal workup.
Past History
<Tayler Rdz PA-C - Last Filed: 02/01/25 11:56>
Past History
ED Past Medical History: None
ED Past Surgical History: None
Social History
Tobacco: Non-smoker
Alcohol: None
Drug: None
Personal: Single
Living: with family
Review of Systems
<Tayler Rdz PA-C - Last Filed: 02/01/25 11:56>
Review of Systems
Allergies reviewed?: Yes
All Other Systems: ROS reviewed and negative except as documented in HPI and ROS
Phy Exam
<Tayler Rdz PA-C - Last Filed: 02/01/25 11:56>
Physical Exam
Physical Exam:
Vitals: Patient's vital signs are stable. Afebrile
General: Patient is well appearing, no acute distress. Nontoxic appearing
Skin: Warm and dry, no rashes or lesions
Head: Normocephalic, atraumatic
Eyes: Sclera nonicteric.
Throat: Protecting airway
Neck: Normal ROM, no cervical spine tenderness, no meningismus
Cardiac: Regular rate and rhythm, no murmurs. No reproducible chest wall tenderness. Plus palpable radial pulses bilaterally
Pulm: Normal respiratory effort, no wheezes, rales, rhonchi heard on exam
Abdomen: No abdominal tenderness.
Extremities: No evidence of cyanosis or edema
Neuro: AAOx3. Grossly intact.
Psychiatric: Normal affect.
Scores
<Tayler Rdz PA-C - Last Filed: 02/01/25 11:56>
Heart Score for Chest Pain Patients
STEMI patient?: No
History: Slightly or Non-Suspicious
ECG: Normal
Age: >/= 65 years
Risk Factors: 1 or 2 Risk Factors
Troponin: </= Normal Limit
Heart Score for Chest Pain Patients: 3
Heart Score Risk: 2.5% MACE over next 6 weeks
Course
<Tayler Rdz PA-C - Last Filed: 02/01/25 11:56>
Orders/Labs/Results
Orders:
Orders
01/31/25 13:53
EKG [Electrocardiogram (*1)] Urgent
Reason for Study: Shortness of Breath
EKG- Treatment ONCE
01/31/25 14:07
CMP [Comprehensive Metabolic Panel] Urgent
Complete Blood Count/With Diff Urgent
Troponin I Urgent
01/31/25 16:04
D-Dimer Urgent
01/31/25 16:23
CT Chest/abd/pelvis Angio W/wo Urgent
Comment:
Reason For Exam: Chest pressure radiating into back
01/31/25 17:08
Troponin I Urgent
01/31/25 17:10
Electrocardiogram (*1) Urgent
Reason for Study: Chest Pain
EKG- Treatment ONCE
Abnormal Lab Results
01/31/25 01/31/25
14:07 16:04
Absolute Lymphs (auto) 3.6 H 10^3/uL
(1.2-3.4)
D-Dimer 0.88 H ug/mlFEU
(0.00-0.50)
Chloride 109 H mmol/L
(98-107)
Carbon Dioxide 19 L mmol/L
(22-30)
BUN 25 H mg/dl
(7-17)
Glucose 128 H mg/dl
(70-99)
AST 50 H U/L
(14-36)
01/31/25 14:07
01/31/25 14:07
Vital Signs
Initial and Last Documented VS:
Initial Vital Signs
Temp Pulse Resp BP Pulse Ox
97.8 F 60 16 102/54 97
01/31/25 13:57 01/31/25 13:57 01/31/25 13:57 01/31/25 13:57 01/31/25 13:57
Last Documented Vital Signs
Temp Pulse Resp BP Pulse Ox
97.8 F 55 18 147/62 98
01/31/25 13:57 01/31/25 21:12 01/31/25 21:12 01/31/25 21:12 01/31/25 21:12
<Jorge Luis Meng MD - Last Filed: 01/31/25 16:34>
Orders/Labs/Results
Orders:
Orders
01/31/25 13:53
EKG [Electrocardiogram (*1)] Urgent
Reason for Study: Shortness of Breath
EKG- Treatment ONCE
01/31/25 14:07
CMP [Comprehensive Metabolic Panel] Urgent
Complete Blood Count/With Diff Urgent
Troponin I Urgent
01/31/25 16:04
D-Dimer Urgent
01/31/25 16:23
CT Chest/abd/pelvis Angio W/wo Urgent
Comment:
Reason For Exam: Chest pressure radiating into back
01/31/25 17:08
Troponin I Urgent
01/31/25 17:10
Electrocardiogram (*1) Urgent
Reason for Study: Chest Pain
EKG- Treatment ONCE
Abnormal Lab Results
01/31/25 01/31/25
14:07 16:04
Absolute Lymphs (auto) 3.6 H 10^3/uL
(1.2-3.4)
D-Dimer 0.88 H ug/mlFEU
(0.00-0.50)
Chloride 109 H mmol/L
(98-107)
Carbon Dioxide 19 L mmol/L
(22-30)
BUN 25 H mg/dl
(7-17)
Glucose 128 H mg/dl
(70-99)
AST 50 H U/L
(14-36)
01/31/25 14:07
01/31/25 14:07
Vital Signs
Initial and Last Documented VS:
Initial Vital Signs
Temp Pulse Resp BP Pulse Ox
97.8 F 60 16 102/54 97
01/31/25 13:57 01/31/25 13:57 01/31/25 13:57 01/31/25 13:57 01/31/25 13:57
Last Documented Vital Signs
Temp Pulse Resp BP Pulse Ox
97.8 F 55 18 147/62 98
01/31/25 13:57 01/31/25 21:12 01/31/25 21:12 01/31/25 21:12 01/31/25 21:12
<Tayler Rdz PA-C - Last Filed: 02/01/25 11:56>
MDM/Problems Addressed
Differential Diagnosis Includes:
Not limited to: Unstable angina, pneumothorax, pulmonary embolism, aortic dissection, cardiac arrhythmia, etc.
MDM/Problems Addressed:
74-year-old female presenting with acute onset chest pressure radiating into upper back. Symptoms were not exertional or pleuritic in nature and resolved prior to my evaluation. No personal history of CAD. She did have history of somewhat similar
symptoms a few years ago with a negative workup and was followed by an outpatient distillery supervisor without any abnormal findings at that time. Vitals and physical exam as above. Patient very well-appearing, no apparent distress on examination.
Cardio/pulmonary assessment unremarkable. She has palpable and equal radial pulses with no clinical evidence of DVT on exam. EKG shows normal sinus rhythm without acute ischemic changes. ED plan: Check basic labs, trend serial troponins. Given
history of radiation of pain into back�will obtain CT angiogram with dissection protocol however feel this diagnosis less likely.
Update: Labs reviewed. No clinically significant abnormalities. Troponin negative x 2 unchanged EKGs. Dissection study without any acute abnormalities. Patient has remained asymptomatic in the emergency department. At this point�very low
suspicion/pulmonary process. Stable for discharge home however will place patient on chest pain hotline for prompt outpatient cardiology follow-up. Very strict return precautions discussed. Patient comfortable with plan.
Chronic conditions affecting care:
N/A
Acute Exacerbation and/or Progression of Chronic Illness:
N/A
<Tayler dRz PA-C - Last Filed: 02/01/25 11:56>
*Radiology
Radiology exam reviewed: radiology read reviewed
*Pulse Oximetry
SaO2: 97
Oxygen Mode of Delivery: Room air
Patient hypoxic: no
*EKG
Interpreted by ED Provider?: Yes
EKG Intrepretation Date: 01/31/25
Interpretation: abnormal
Comparison EKG: no changes
Heart Rate: 57
Rate: bradycardiac
Rhythm: sinus
[place]: normal axis
Interval: normal QT interval
QRS Pattern: normal QRS
Ischemia: no ischemia
*Flyer Repairer Interpretation
Rate: normal
Interpretation: normal
Heart Rate: 60
Rhythm: sinus
*Critical Care Note
Total Time (30-74mins, 75-104mins- exclusive of procedures): Not Applicable
Data Reviewed
Review of Other/Old Records Reveals: Testing (Stress echo 04/30/2021-EF 55%)
ED Attending Note
<Tayler Rdz PA-C - Last Filed: 02/01/25 11:56>
-
Portions of this chart may have been created with voice recognition software.� Occasional wrong word or��sound alike� substitutions may have occurred due to the inherent limitations of voice recognition software.
<Jorge Luis Meng MD - Last Filed: 01/31/25 16:34>
ED Attending Note
Patient seen and examined by attending physician: Yes
I performed the substantive portion of visit, reviewed & personally made and approve the management plan that is documented in note by myself or THERESA.: Yes
ED Attending Note:
74-year-old female sudden onset of upper chest pain with radiation to the upper back while at the hospital. Symptoms started an hour and 45 minutes ago. Essentially gone at this time. Previous similar episode months ago and previous similar
episode a few years ago here with a negative workup. No pleuritic pain no shortness of breath no other complaints. Patient exercises at the [facility] 3 days/week and has had no issues recently. No cardiac risk factors.
GENERAL: Alert and oriented in no apparent distress
EYE: Orbits normal.
NECK: Supple
CARDIAC: Regular rate and rhythm without any obvious murmurs.
LUNGS: Clear breath sounds,normal
ABDOMEN: Soft, without focal tenderness or distention
NEUROLOGICAL: Alert and oriented , grossly non-focal
SKIN: Warm and dry, no rash or lesion, no discoloration, skin intact.
MUSCULOSKELETAL: No edema,no deformity.Good color
PSYCH: Normal and appropriate interaction.
Impression sudden chest pain to the upper back. Not described as shearing. However with symptoms patient needs a CT angio to rule out dissection. Cardiac workup including repeat troponins. If all stable and negative patient can be discharged
with close cardiac follow-up.
Discharge Plan
Departure
Patient Disposition: Home (Routine Discharge)
Date of Disposition: 01/31/25
Time of Disposition: 21:08
Patient with high blood pressure during this ER visit?: Yes
Condition: Good
Covid-19: Not Applicable
Discharge Problem:
Chest pain
Instructions: Chest pain - Discharge instructions, Chest Pain DCA Follow Up, BLOOD PRESSURE
Prescriptions:
No Action
aspirin 81 mg Tablet,Chewable
81 mg PO BID 30 Days Qty: 60 0RF
Referrals:
John Ashford MD [Active, Cardiology] - Follow up in 5-7 days
Chioma Allan CRNP [Family Provider, Internal Medicine]
Activity Restrictions/Additional Instructions:
RETURN TO THE EMERGENCY DEPARTMENT WITH ANY FEVERS, CHEST PAIN OR SHORTNESS OF BREATH, SEVERE BACK PAIN, DIFFICULTY BREATHING, NUMBNESS/TINGLING OR WEAKNESS IN EXTREMITIES, WORSENING OF CURRENT SYMPTOMS, OR ANY OTHER CONCERNS
- As discussed�your workup in the emergency department showed no acute abnormalities. Your EKG showed no ischemic changes and your cardiac enzymes were negative.
- Given symptoms today�it is importantly follow-up closely with cardiology for further evaluation/management as this may require further testing. Contact information has been provided for you above
Monitor your symptoms closely and return to the emergency department with any acute worsening/new symptoms or any other concerns
Interventions
Interventions:
*Risk Screen - Suicide Last Done: 01/31/25 13:57
*General Assessment Last Done: 01/31/25 14:32
*Neglect/Abuse Screening Last Done: 01/31/25 13:57
*Nursing Disposition Last Done: 01/31/25 21:20
ED- Cardiac Assessment Last Done: 01/31/25 14:32
Discharge Date and Time
Discharge Date/Time: 01/31/25 21:20
Print Language: ANDORRAN
[2025-01-31 16:22] LABS: D-Dimer 0.88 ug/mlFEU (0.00-0.50)
[2025-01-31 17:49] LABS: Troponin I < 0.012 ng/ml
[2025-01-31 20:09] VITALS: BP 146/75
[2025-01-31 21:12] VITALS: BP 147/62
== END 2025-01-31 21:20 | disposition home or self-care (01) ==
LOC: EMR 13:52
PROVIDERS: Emergency Medicine; Physician Assistant; EMERGENCY PHYSICIAN Emergency Medicine; FAMILY PHYSICIAN Nurse Practitioner
DX: R07.89 Other chest pain (principal); R06.02 Shortness of breath; M54.6 Pain in thoracic spine; R61 Generalized hyperhidrosis; R03.0 Elevated blood-pressure reading, without diagnosis of hypertension; B02.9 Zoster without complications
CPT/HCPCS: 99284; 71275; 74174; 80053; 84484; 85025; 85379; 93005; Q9967

== ENCOUNTER → 2025-03-28 08:23 | Outpatient (REF) | payer OTHER, SELFPAY | LOC: RAD 08:23 | PROVIDERS: ATTENDING PHYSICIAN Nurse Practitioner | DX: Z13.820 Encounter for screening for osteoporosis (principal) | CPT/HCPCS: 77080 ==

== ENCOUNTER → 2025-03-31 08:09 | Outpatient (REF) | payer OTHER, SELFPAY | LOC: RCS 08:09 | PROVIDERS: ATTENDING PHYSICIAN Internal Medicine Cardiovascular Disease; FAMILY PHYSICIAN Internal Medicine | DX: R07.2 Precordial pain (principal) | CPT/HCPCS: 93017; 93350 ==